=== PATIENT | female | born 2000 ===

== ENCOUNTER 2023-01-21 18:11 | Emergency (ER) | payer BC | END 2023-01-21 18:50 | disposition home or self-care (01) | LOC: CSHERS 18:11 | DX: K62.5 Hemorrhage of anus and rectum (principal); F17.290 Nicotine dependence, other tobacco product, uncomplicated | CPT/HCPCS: 99283 ==

== ENCOUNTER 2025-03-16 16:47 | Emergency (ER) | payer BC, OTHER ==
[~2025-03-16 16:47] MED LIST: Iopamidol 370 76% 100 ML VIAL ONE
[2025-03-16] MEDS ORDERED: Ondansetron PF 4 MG/2 ML Vial ONE (17:56)
[2025-03-16] MEDS ORDERED: Magnesium 2 GM/50 ML BAG (IN WATER) ONE (18:03)
[2025-03-16 18:30] LABS: Glucose, Urine (Dipstick) 100 mg/dL (Negative); Leukocyte 25 (Negative); Protein, Urine (Dipstick) 15 mg/dl (Neg-Trace); Specific Gravity, Urine 1.020 (1.005-1.030)
[2025-03-16 18:38] LABS: Bacteria/HPF 2+ HPF (None Seen); CAUTI Indications for Culture Pelvic or flank pain; Cocaine Metabolite Screen Negative (Negative); RBC/HPF None Seen HPF (0-3); THC/Cannabinoid Screen Negative (Negative); Tricyclic Screen Negative (Negative); WBC/HPF 0-3 HPF (0-3)
[2025-03-16 18:39] LABS: Urine Culture Reflex No No
[2025-03-16 18:48] LABS: #Basophils 0.03 10x3/uL (0.0-0.2); #Eosinophils 0.17 10x3/uL (0.0-0.5); #Monocytes 0.49 10x3/uL (0.0-1.1); #Neutrophils 3.95 10x3/uL (1.5-8.4); %Basophils 0.4 % (0.0-2.0); %Eosinophils 2.4 % (0.0-6.0); %Lymphocytes 33.1 % (18.0-47.0); %Monocytes 7.1 % (0.0-10.0); %Neutrophils 56.9 % (40.0-75.0); Hematocrit 43.9 % (34.9-44.5); Hemoglobin 14.7 g/dL (12.0-15.5); Mean Corpuscular Hemoglobin 30.3 pg (27.0-33.0); Mean Corpuscular Volume 90.5 fL (81.6-98.3); Platelet Count 296 10x3/uL (150-450); Red Blood Cell (RBC) Count 4.85 10x6/uL (3.90-5.03); White Blood Cell (WBC) Count 6.95 10x3/uL (3.5-10.5)
[2025-03-16 18:52] LABS: Acetaminophen Less than 10 mcg/mL (Less than 10); BHCG - Serum Negative (NEGATIVE); CK (CPK) 37 U/L (29-168); Magnesium 2.1 mg/dL (1.6-2.6); Pregs Control Background? CLEAR/WHITE (CLR/WHITE); Pregs Control Bar Appear? YES (CONTROL BAR); Salicylate Less than 8.0 mg/dL (Less than 8.0)
[2025-03-16 18:54] LABS: ALT (SGPT) 17 U/L (Less than 34); AST (SGOT) 18 U/L (11-34); Albumin 4.5 g/dL (3.1-4.5); Alkaline Phosphatase 41 U/L (40-110); Anion Gap 15 mmol/L (10-20); BUN (Urea Nitrogen) 16 mg/dL (7.0-18.7); Bilirubin, Total 0.3 mg/dL (0.3-1.2); Calc. Creatinine Clearance 0 mL/min (70-130); Calcium 9.4 mg/dL (7.8-10.44); Carbon Dioxide 21 mmol/L (22-29); Chloride 104 mmol/L (98-107); Globulin 2.7 g/dL (2.4-3.5); Glucose 89 mg/dL (70-105); Potassium 3.8 mmol/L (3.5-5.1); Sodium 136 mmol/L (136-145)
[2025-03-16 18:57] LABS: INR-International Normal Ratio 1.0; PTT 26.2 sec (22.0-33.0); Prothrombin Time 11.3 sec (9.5-12.1)
[2025-03-16 18:58] LABS: Troponin I Less than 0.010 ng/mL (< 0.028)
[2025-03-16 19:03] LABS: Lipase 17 U/L (8-78)
[2025-03-16 19:13] LABS: Free T4 (Free Thyroxine) 1.22 ng/dL (0.70-1.48); Thyroid Stimulating Hormone 0.9627 uIU/mL (0.35-4.94)
== END 2025-03-16 21:31 | disposition home or self-care (01) ==
LOC: CSHERS 16:47
DX: R11.0 Nausea (principal); I73.00 Raynaud's syndrome without gangrene; Z55.6 Problems related to health literacy
CPT/HCPCS: 36415; 70450; 71275; 74174; 80053; 80306; 80307; 81001; 83605; 83690; 83735; 84439; 84443; 84481; 84484; 84703; 85025; 85610; 85730; 86140; 93005; 96374; 96375; J2405; J3475; Q9967